=== PATIENT | male | born 1980 | race Caucasian/White ===

== ENCOUNTER 2017-11-30 20:36 | Emergency (ER) | payer OTHER ==
[~2017-11-30] VITALS: Ht 180.3 cm; Wt 111.1 kg
[~2017-11-30 20:36] MED LIST: CEFDINIR300 M1 PO
--- NOTE | 2017-11-30 22:24 | ED GENERAL ADULT ---
History of Present Illness General Chief Complaint: General Adult Stated Complaint: "FEVER, BOTH LEGS SWOLLEN, RED, AND PAINFULL" Source: patient, old records Exam Limitations: no limitations Vital Signs & Intake/Output Vital Signs & Intake/Output Vital Signs Date Time Temp Pulse Resp B/P B/P Pulse O2 O2 Flow FiO2 Mean Ox Delivery Rate 12/01 0106 98.9 90 18 102/60 98 Room Air 12/01 0034 99.4 12/01 0028 99.4 11/30 2318 102.2 102 20 105/62 98 Room Air Room Air 11/30 2128 101.7 110 18 116/74 96 Room Air ED Intake and Output 12/01 0000 11/30 1200 Intake Total 1000 Output Total Balance 1000 Intake, IV 1000 Patient 245 lb Weight Weight Estimated Measurement Method Allergies Coded Allergies: Fish Containing Products (N/V 04/15/17) Penicillins (ANAPHYLAXIS 04/15/17) erythromycin base (GI UPSET N/V 04/15/17) Reconcile Medications Cefdinir 300 MG CAPSULE 1 CAP PO BID otitis media Clindamycin HCl 300 MG CAPSULE 1 CAP PO TID cellulitis Triage Note: RECEIVED 37 YO MALE C/O BILATERAL KNEE PAIN X 1 1/2 WEEKS, UNABLE TO WEIGHT BEAR. NO KNN INJURY NOTED. PT ALSO REPORTS BOTH INNER ANKLES ARE SWOLLEN AND REDDENED X 2 DAYS. PT RECENTLY STARTED ON THYROID AND CHOLESTERAL MEDS. Triage Nurses Notes Reviewed? yes Onset: Abrupt Duration: week(s): (1), constant, getting worse Timing: recent history Injury Environment: home Severity: moderate Severity Numbers: 6 No Modifying Factors: none Associated Symptoms: FEVER HPI: 37-year-old male recently diagnosed with high cholesterol hypothyroid presents the ER stating for the past 1 week he's had bilateral knee pain radiating to his thighs described as crampy aching pain. He states that the symptoms began after he started taking Lipitor and Synthroid. He stopped taking the medication and 2 days ago began having redness warmth and pain and swelling to his inner medial ankles. He denies any known injury or trauma. No cough shortness of breath abdominal pain nausea vomiting diarrhea. He reports to feeling cold at home. No sick contacts or recent tick or insect bite. No recent travel no history of similar episodes in the past (Jimmy SCHERER,Sudeep) Past History Travel History Traveled to [place] past 21 day No Medical History Any Pertinent Medical History? see below for history Neurological: NONE EENT: NONE Cardiovascular: hyperlipidemia Respiratory: NONE Gastrointestinal: NONE Hepatic: NONE Renal: NONE Musculoskeletal: NONE Psychiatric: NONE Endocrine: hypothyroidism Blood Disorders: NONE Cancer(s): NONE MEDICAL ASSISTANT PRN/Reproductive: NONE Surgical History Surgical History: non-contributory Psychosocial History What is your primary language Slovak Tobacco Use: Current Daily Use Daily Tobacco Use Amount/Type: => 5 Cigarettes daily Family History Hx Contributory? No (Sudeep Vega) Review of Systems Review of Systems Constitutional: Reports: see HPI. Comments Review of systems: See HPI, All other systems negative. Constitutional, chills fever, HEENT: no sore throat no congestion, no ear pain Cardiovascular: No chest pain , no palpitation Skin: no rashes, no change in skin Respiratory: No dyspnea no cough no sputum GI: No nausea no vomiting, no diarrhea, : No dysuria Muscle skeletal: No joint pain, no back pain, no neck pain, Neurologic: , no headache Heme/endocrine: No bruising Immunology: No lymphadenopathy (Sudeep Vega) Physical Exam Physical Exam General Appearance: well developed/nourished, alert, awake Comments: Well-developed well-nourished person in no acute distress HEENT: Normal EENT exam; PERRL, EOMI, HEAD is atraumatic. moist mucous membranes. Neck: Supple, , normal range of motion without pain or tenderness Back: Nontender, no CVA tenderness. Full range of motion Cardiovascular: Regular rate and rhythms no murmurs rub Respiratory: Chest nontender.There were no bony deformities, no asymmetry. No respiratory distress. Patient speaking in full complete sentences. Breath sounds clear to auscultation bilaterally: NO W/R/R Abdomen: Soft, nontender nondistended, no appreciable organomegaly. Normal bowel sounds. No rebound/guarding, Extremity: There is bilateral erythema noted to the medial malleolus bilaterally with positive warmth and tenderness, the rest of the lower extremities are atraumatic no other rashes to the skin, No edema, full range of motion of extremities, normal and equal pulses bilaterally, 5 out of 5 strength noted to bilateral upper and lower extremities. No open sores to the legs Neuro: Alert oriented x3, motor sensory normal, There were no obvious focal neurologic abnormalities. Skin: No appreciable rash on exposed skin, skin is warm and dry. Psych: Mood and affect is normal, memory and judgment is normal. Core Measures ACS in differential dx? No CVA/TIA Diagnosis: No Sepsis Present: No Sepsis Focused Exam Completed? No (Jimmy SCHERER,Sudeep) Progress Differential Diagnoses I considered the following diagnoses in my evaluation of the patient: Pneumonia influenza UTI sepsis thyroid abnormality rhabdomyolysis adverse reaction to medication cellulitis, septic arthritis Plan of Care: Orders Procedure Date/time Status RAPID VIRAL INFLUENZA A 11/30 2232 Complete BLOOD CULTURE 12/01 2219 Active URINE DRUG SCREEN FOR ER ONLY 12/01 2219 Complete URINALYSIS 12/01 2219 Complete THYROID STIMULATING HORMONE 12/01 2219 Complete LYME TITRE 12/01 2219 Active LACTIC ACID 12/01 2219 Complete COMPREHENSIVE METABOLIC PANEL 12/01 2219 Complete CREATINE PHOSPHOKINASE 12/01 2219 Complete CBC WITHOUT DIFFERENTIAL 12/01 2219 Complete Current Medications Sig/Christy Start time Last Medication Dose Stop Time Status Admin Ketorolac 30 MG ONCE ONE 11/30 2229 CAN Tromethamine 11/30 2230 (Toradol) Laboratory Tests 12/01/17 0120: Lactic Acid Cancelled 11/30/17 2335: Urine Opiates Screen < 100, Methadone Screen < 40, Barbiturate Screen < 60, Ur Phencyclidine Scrn < 6.00, Amphetamines Screen < 100, U Benzodiazepines Scrn < 85, Urine Cocaine Screen < 50, Urine Cannabis Screen < 5.00, Urine Color YEL, Urine Clarity CLEAR, Urine pH 7.0, Ur Specific [place] 1.020, Urine Protein NEG, Urine Ketones NEG, Urine Nitrite NEG, Urine Bilirubin NEG, Urine Urobilinogen 0.2, Ur Leukocyte Esterase NEG, Ur Microscopic EXAM NOT REQUIRED, Urine Hemoglobin NEG, Urine Glucose NEG 11/30/17 2312: Anion Gap 10, Estimated GFR > 60, BUN/Creatinine Ratio 16.0, Glucose 102 H, Lactic Acid 0.8, Calcium 8.6, Total Bilirubin 1.0, AST 20, ALT 34, Alkaline Phosphatase 51, Creatine Kinase 156, Total Protein 6.8, Albumin 3.8, Globulin 3.0, Albumin/Globulin Ratio 1.3, TSH 3.100, CBC w Diff NO MAN DIFF REQ, RBC 4.54 L, MCV 87.1, MCH 29.4, MCHC 33.7, RDW 13.0, MPV 7.7, Gran % 74.3, Lymphocytes % 11.9 L, Monocytes % 12.3 H, Eosinophils % 1.0, Basophils % 0.5, Absolute Granulocytes 7.7 H, Absolute Lymphocytes 1.2, Absolute Monocytes 1.3 H, Absolute Eosinophils 0.1, Absolute Basophils 0, Lyme Disease Antibody Pending 11/30/17 2224: Creatine Kinase Cancelled Microbiology 12/01 0021 BLOOD: Blood Culture - RECD 11/30 2312 BLOOD: Blood Culture - RECD 11/30 2300 NASOPHARYN: Influenza Virus A & B Rapid Smear - COMP Labs ordered patient acute IV Tylenol chest x-ray ordered on repeat eval jeff reports the pain has improved in his ankles with iv tylenol, resting in nad, pening labs Case discussed with Dr. Lewis agrees with plan the patient has no cough shortness of breath. Given redness warmth to bilateral malleoli Will treat for suspected cellulitis. The patient would like to go home given he has no leukocytosis, lactic acid is normal patient's fever responded with medication I discussed with him plan of care he will return in 24-48 hrs. for wound check. I discussed with him return precautions however he has persistent fevers streaking up his legs worsening pain or any other concerns to return immediately. Diagnostic Imaging: Viewed by Me: Radiology Read. Discussed w/RAD: Radiology Read. Radiology Impression: PATIENT: JEFF SCOTT PRESENT AGE: 37 PATIENT ACCOUNT NO: [id number] : 79 LOCATION: [facility] ORDERING PHYSICIAN: Sudeep SCHERER SERVICE DATE: 11/30/17 EXAM TYPE: RAD - XRY-PORTABLE CHEST XRAY EXAMINATION: XR PORTABLE CHEST CLINICAL INFORMATION: Fever COMPARISON: None TECHNIQUE: Portable frontal view of the chest was obtained. FINDINGS: The lungs are well expanded. There is no edema or effusion. Right infrahilar opacity suspected. No pneumothorax. The cardiomediastinal silhouette is within normal limits. No acute osseous abnormality. IMPRESSION: Right infrahilar opacity suspected which could represent atelectasis or pneumonia. DICTATED BY: Karlos PELLETIER,Robbie DATE/TIME DICTATED:11/30/172248 HEARING OFFICER:REGINA DATE/TIME TRANSCRIBED:2248 CONFIDENTIAL, DO NOT COPY WITHOUT APPROPRIATE AUTHORIZATION. < Electronically signed in Other Vendor System> SIGNED BY: Karlos PELLETIER, Robbie 11/30/17 2256 Initial ED EKG: none (Sudeep Vega) Departure Departure Disposition: HOME OR SELF CARE Condition: Stable Clinical Impression Primary Impression: Cellulitis Referrals: Joanne PELLETIER,Marino Cardenas (PCP/Family) Additional Instructions: Clindamycin as directed. Please return to emergency room in 24-48 hours for repeat wound check. Check her temperatures at home if they're greater than 100.4 take Tylenol. If her temperatures remain elevated despite medication, you have worsening pain, redness warmth or streaking up her legs as discussed please return at anytime sooner. This was sent to [facility] Departure Forms: Customer Survey General Discharge Information Prescriptions: Current Visit Scripts Clindamycin HCl 1 CAP PO TID #30 CAP (Sudeep Vega) PA/REFRIGERATION SPECIALIST Co-Sign Statement Statement: ED Attending supervision documentation- [] I saw and evaluated the patient. I have also reviewed all the pertinent lab results and diagnostic results. I agree with the findings and the plan of care as documented in the PA's/REFRIGERATION SPECIALIST's documentation. [x] I have reviewed the ED Record and agree with the PA's/REFRIGERATION SPECIALIST's documentation. [] Additions or exceptions (if any) to the PAs/REFRIGERATION SPECIALIST's note and plan are summarized below: [] (Debbie PELLETIER,Benton Mota) Critical Care Note Critical Care Note Critical Care Time: non-applicable (Sudeep Vega)
--- NOTE | 2017-11-30 22:54 | RADIOLOGY REPORT ---
EXAMINATION: XR PORTABLE CHEST CLINICAL INFORMATION: Fever COMPARISON: None TECHNIQUE: Portable frontal view of the chest was obtained. FINDINGS: The lungs are well expanded. There is no edema or effusion. Right infrahilar opacity suspected. No pneumothorax. The cardiomediastinal silhouette is within normal limits. No acute osseous abnormality. IMPRESSION: Right infrahilar opacity suspected which could represent atelectasis or pneumonia.
[2017-11-30 23:36] LABS: ABSOLUTE BASOPHIL COUNT 0 /CUMM (0.0-0.2); ABSOLUTE EOSINOPHIL COUNT 0.1 /CUMM (0.0-0.7); ABSOLUTE GRANULOCYTE CT 7.7 /CUMM (1.4-6.5); ABSOLUTE LYMPH COUNT 1.2 /CUMM (1.2-3.4); ABSOLUTE MONOCYTE COUNT 1.3 /CUMM (0.10-0.60); BASOPHIL % 0.5 % (0.0-2.0); GRANULOCYTE % 74.3 % (42.2-75.2); HEMATOCRIT 39.6 % (42-52); MEAN CORPUSCULAR HGB 29.4 PG (27.0-31.0); MEAN CORPUSCULAR HGB CONC 33.7 G/DL (33.0-37.0); MEAN CORPUSCULAR VOLUME 87.1 FL (80.0-94.0); MEAN PLATELET VOLUME 7.7 FL (7.4-10.4); PLATELET COUNT 324 /CUMM (130-400); RED BLOOD CELL CT 4.54 /CUMM (4.70-6.10); WHITE BLOOD CELL COUNT 10.4 /CUMM (4.8-10.8)
[2017-12-01] MEDS ORDERED: CLINDAMYCIN HC300 M1 PO (00:44)
[2017-12-01 01:06] VITALS: BP 102/60
== END 2017-12-01 01:44 ==
LOC: ERH 20:36
PROVIDERS: Physician Assistant Medical
DX: L03.115 Cellulitis of right lower limb (principal); L03.116 Cellulitis of left lower limb
CPT/HCPCS: 86618; 71045; 80307; 81003; 87040; 87804; 87804-59; 96365; 96375; J0131